=== PATIENT | male | born 1940 | race Caucasian/White ===

== ENCOUNTER 2017-10-19 16:59 | Observation (INO) | payer MEDICARE ==
[~2017-10-19] VITALS: Ht 177.8 cm; Wt 90.0 kg
[2017-10-19] VITALS (7 sets, daily range): BP systolic 118–176; BP diastolic 57–76; PULSE 56–68; RESP 15–18; TEMP 97.7–98.3; O2SAT 96–99
[~2017-10-19 16:59] MED LIST: CIPR-9 PO; LISI10TA PO; METR-1 PO; OMEP20TA93 PO; PRAV20TA2 PO; SUPETAB20 PO
[2017-10-19] MEDS ORDERED: ASPI1TAB57 PO (17:26)
[2017-10-19 17:34] LABS: AUTOMATED NEUTROPHIL # 6.1 TH/MM3 (1.8-7.7); BASOPHIL % 0.5 % (0.0-2.0); EOSINOPHIL # 0.2 TH/MM3 (0-0.4); EOSINOPHIL % 2.1 % (0.0-4.0); HEMATOCRIT 39.2 % (39.0-51.0); LYMPH % 11.5 % (9.0-44.0); LYMPHOCYTE # 0.9 TH/MM3 (1.0-4.8); MEAN CELL VOLUME 92.2 FL (80.0-100.0); MEAN CORPUSCULAR HEMOGLOBIN 32.8 PG (27.0-34.0); MEAN CORPUSCULAR HGB CONC 35.6 % (32.0-36.0); MEAN PLATELET VOLUME 7.5 FL (7.0-11.0); MONO % 9.1 % (0.0-8.0); MONOCYTE # 0.7 TH/MM3 (0-0.9); NEUT % 76.8 % (16.0-70.0); PLATELET COUNT 202 TH/MM3 (150-450); RED BLOOD COUNT 4.25 MIL/MM3 (4.50-5.90); RED CELL DISTRIBUTION WIDTH 12.7 % (11.6-17.2)
[2017-10-19] MEDS ORDERED: ASPIRIN 325 MG TAB PO ONE (17:45)
[2017-10-19 17:50] LABS: ALT (GPT) 42 U/L (12-78); INTERNATIONAL NORMALIZED RATIO 1.1 RATIO; PROTHROMBIN TIME - PATIENT 10.7 SEC (9.8-11.6)
[2017-10-19 17:52] LABS: ALBUMIN 3.8 GM/DL (3.4-5.0); AST (GOT) 40 U/L (15-37); BICARBONATE 24.5 MEQ/L (21.0-32.0); BLOOD UREA NITROGEN 22 MG/DL (7-18); CHLORIDE 102 MEQ/L (98-107); CREATININE 1.06 MG/DL (0.60-1.30); GLOMERULAR FILTRATION RATE 67 ML/MIN (>89); GLUCOSE,RANDOM 89 MG/DL (74-106); LIPASE 90 U/L (73-393); SODIUM (NA) 135 MEQ/L (136-145)
[2017-10-19 17:55] LABS: D-DIMER 0.22 MG/L FEU (0.00-0.50)
[2017-10-19 17:57] LABS: ALKALINE PHOSPHATASE 50 U/L (45-117); TOTAL BILIRUBIN ADULT 0.8 MG/DL (0.2-1.0); TOTAL PROTEIN 7.2 GM/DL (6.4-8.2); TROPONIN I LESS THAN 0.02 NG/ML (0.02-0.05)
--- NOTE | 2017-10-19 18:01 | RADRPT ---
EXAM DATE/TIME: 10/19/2017 17:37 [facility] COMPARISON: No previous studies available for comparison. INDICATIONS : Center chest pain. MEDICAL HISTORY : Gastroesophageal reflux disease. Hypertension. SURGICAL HISTORY : Cholecystectomy. Lumbar fusion. ENCOUNTER: Initial ACUITY: 1 day PAIN SCORE: 4/10 LOCATION: Bilateral chest FINDINGS: Mild right lung base atelectasis and/or infiltrate is seen. Heart and mediastinum are unremarkable fo r technique. CONCLUSION: Mild right lung base atelectasis and/or infiltrate is seen. Sonya Camejo MD on October 19, 2017 at 17:58 Board Certified Radiologist. This report was verified electronically.
[2017-10-19] MEDS ORDERED: SODIUM CHLORIDE 0.9% FLUSH 10 ML FLUSH IV FLUSH PRN (18:30)
--- NOTE | 2017-10-19 19:00 | PD ---
HPI Chief Complaint: Chest Pain Time Seen by Provider: 17:08 Travel History International Travel<30 days: No Contact w/Intl Traveler<30days: No Traveled to known affect area: No History of Present Illness HPI 77-year-old male that presents to the ED for evaluation of chest pain. Patient reports that he's had this left-sided chest pain on and off for the past couple of days. Per patient comes and goes. tells me that the pain got more severe today which is what prompted her to make him come to the ED. Patient states he has no history of heart disease in per patient has stress test done in [place] some time last summer and he was told he was okay. He states the chest pain comes and goes. Nothing really seems to make it better or worse. Per patient he is also "belching". He has a history of heartburn. Per patient he never had this chest pain before. He does have shortness of breath with the chest pain. He does come from [place] and recently flew on July but denies any other recent travel. Takes no blood thinners other than aspirin. Chest pain at this time is 6 out of 10. Denies any fevers chills or sweats. Per his to having some congestion but otherwise no cough. Per patient he attributes this to allergies. Has no allergies to medication. No other medical issues. Does have a history of high cholesterol and high blood pressure PFSH Past Medical History Hx Anticoagulant Therapy: Yes (81MG ASA) Arthritis: Yes Autoimmune Disease: No Anxiety: Yes Depression: No Cancer: Yes Cardiovascular Problems: Yes (+ STRESS TEST) High Cholesterol: Yes Chemotherapy: No Congestive Heart Failure: No Diabetes: No Diminished Hearing: No Endocrine: No Gastrointestinal Disorders: Yes GERD: Yes Glaucoma: No Genitourinary: No Hepatitis: No Hiatal Hernia: No Hypertension: Yes Immune Disorder: No Musculoskeletal: Yes Neurologic: No Psychiatric: Yes Reproductive: No Respiratory: No Integumentary: No Radiation Therapy: No Thyroid Disease: No Past Surgical History Abdominal Surgery: Yes (GALL BLADDER) AICD: No Arteriovenous Shunt: No Cholecystectomy: Yes Insulin Pump: No Joint Replacement: No Neurologic Surgery: Yes (BACK SURGERY X'S 5) Pacemaker: No Thoracic Surgery: No Other Surgery: Yes (BACK, GALLBLADDER, RIGHT KNEE) Social History Alcohol Use: Yes (1 rum/coke daily) Tobacco Use: No Substance Use: No Allergies-Medications (Allergen,Severity, Reaction): Coded Allergies: No Known Allergies (Verified , 09/26/16) Reported Meds & Prescriptions Reported Meds & Active Scripts Active Reported Aspirin 81 (Aspirin) 81 Mg Tabdr 81 Mg PO DAILY Omeprazole 20 Mg Tab 20 Mg PO BID Lisinopril-Hctz 10-12.5 Mg Tab 1 Tab PO DAILY Pravastatin 20 Mg Tab 20 Mg PO HS Review of Systems Except as stated in HPI: all other systems reviewed are Neg Physical Exam Narrative GENERAL: SKIN: Warm and dry. HEAD: Atraumatic. Normocephalic. EYES: Pupils equal and round. No scleral icterus. No injection or drainage. ENT: No nasal bleeding or discharge. Mucous membranes pink and moist. Tongue is midline. No uvula deviation. NECK: Trachea midline. No JVD. CARDIOVASCULAR: Regular rate and rhythm. No murmurs, S3, S4. RESPIRATORY: No accessory muscle use. Clear to auscultation. Breath sounds equal bilaterally. GASTROINTESTINAL: Abdomen soft, non-tender, nondistended. Hepatic and splenic margins not palpable. MUSCULOSKELETAL: Extremities without clubbing, cyanosis, or edema. No obvious deformities. Full range of motion of the upper and lower extremities bilaterally. 2+ pulses bilaterally. NEUROLOGICAL: Awake and alert. No obvious cranial nerve deficits. Motor grossly within normal limits. Five out of 5 muscle strength in the arms and legs. Normal speech. PSYCHIATRIC: Appropriate mood and affect; insight and judgment normal. Data Data Last Documented VS Vital Signs Date Time Temp Pulse Resp B/P (MAP) Pulse Ox O2 Delivery O2 Flow Rate FiO2 10/19/17 18:17 60 18 135/60 (85) 99 2.00 10/19/17 18:04 Nasal Cannula 10/19/17 17:02 97.7 Orders Orders Electrocardiogram (10/19/17 17:18) Complete Blood Count With Diff (10/19/17 17:18) Comprehensive Metabolic Panel (10/19/17 17:18) Ckmb (Isoenzyme) Profile (10/19/17 17:18) Troponin I (10/19/17 17:18) Prothrombin Time / Inr (Pt) (10/19/17 17:18) Act Partial Throm Time (Ptt) (10/19/17 17:18) Lipase (10/19/17 17:18) D-Dimer (10/19/17 17:18) Chest, Single Ap (10/19/17 17:18) Iv Access Insert/Monitor (10/19/17 17:18) Ecg Monitoring (10/19/17 17:18) Oximetry (10/19/17 17:18) Aspirin (Aspirin) (10/19/17 17:45) CKMB (10/19/17 17:22) CKMB% (10/19/17 17:22) Admit Order (Ed Use Only) (10/19/17 18:21) Activity Bed Rest With Brp (10/19/17 18:21) Vital Signs (Adult) Q4H (10/19/17 18:21) Cardiac Rhythm .As Directed (10/19/17 18:21) Notify Dr: Other .PRN (10/19/17 18:21) Notify DrAmanda Parameters (10/19/17 18:21) Resp Oxygen Nasal Cannula (10/19/17 ) Ckmb (Isoenzyme) Profile (10/19/17 20:22) Ckmb (Isoenzyme) Profile (10/19/17 23:22) Troponin I (10/19/17 20:22) Troponin I (10/19/17 23:22) Electrocardiogram (10/19/17 20:22) Electrocardiogram (10/19/17 23:22) ^ Obtain (10/19/17 18:21) Sodium Chloride 0.9% Flush (Ns Flush) (10/19/17 18:30) Sodium Chloride 0.9% Flush (Ns Flush) (10/19/17 21:00) Failure Analysis Engineer / Telemetry YING.Q8H (10/19/17 18:21) Labs Laboratory Tests Test 10/19/17 17:22 White Blood Count 8.0 TH/MM3 Red Blood Count 4.25 MIL/MM3 Hemoglobin 14.0 GM/DL Hematocrit 39.2 % Mean Corpuscular Volume 92.2 FL Mean Corpuscular Hemoglobin 32.8 PG Mean Corpuscular Hemoglobin Concent 35.6 % Red Cell Distribution Width 12.7 % Platelet Count 202 TH/MM3 Mean Platelet Volume 7.5 FL Neutrophils (%) (Auto) 76.8 % Lymphocytes (%) (Auto) 11.5 % Monocytes (%) (Auto) 9.1 % Eosinophils (%) (Auto) 2.1 % Basophils (%) (Auto) 0.5 % Neutrophils # (Auto) 6.1 TH/MM3 Lymphocytes # (Auto) 0.9 TH/MM3 Monocytes # (Auto) 0.7 TH/MM3 Eosinophils # (Auto) 0.2 TH/MM3 Basophils # (Auto) 0.0 TH/MM3 CBC Comment DIFF FINAL Differential Comment Prothrombin Time 10.7 SEC Prothromb Time International Ratio 1.1 RATIO Activated Partial Thromboplast Time 28.7 SEC D-Dimer Quantitative (PE/DVT) 0.22 MG/L FEU Blood Urea Nitrogen 22 MG/DL Creatinine 1.06 MG/DL Random Glucose 89 MG/DL Total Protein 7.2 GM/DL Albumin 3.8 GM/DL Calcium Level 8.0 MG/DL Alkaline Phosphatase 50 U/L Aspartate Amino Transf (AST/SGOT) 40 U/L Alanine Aminotransferase (ALT/SGPT) 42 U/L Total Bilirubin 0.8 MG/DL Sodium Level 135 MEQ/L Potassium Level 4.2 MEQ/L Chloride Level 102 MEQ/L Carbon Dioxide Level 24.5 MEQ/L Anion Gap 9 MEQ/L Estimat Glomerular Filtration Rate 67 ML/MIN Total Creatine Kinase 201 U/L Creatine Kinase MB 6.2 NG/ML Troponin I LESS THAN 0.02 NG/ML Lipase 90 U/L MDM Medical Decision Making Medical Screen Exam Complete: Yes Emergency Medical Condition: Yes Medical Record Reviewed: Yes Interpretation(s) CBC & BMP Diagram 10/19/17 17:22 Total Protein 7.2, Albumin 3.8, Calcium Level 8.0 L, Alkaline Phosphatase 50, Aspartate Amino Transf (AST/SGOT) 40 H, Alanine Aminotransferase (ALT/SGPT) 42, Total Bilirubin 0.8 troponin and CKMB negative EKG shows sinus rhythm with no sign of acute ischemia or arrhythmia. Read by me and attending. Last Impressions Chest X-Ray 10/19/17 2008 Signed Impressions: Service Date/Time: Thursday, October 19, 2017 17:37 - CONCLUSION: Mild right lung base atelectasis and/or infiltrate is seen. Sonya Camejo MD Differential Diagnosis Chest pain versus ACS versus GERD versus a typical chest pain versus PE versus normal exam Narrative Course 77-year-old male that presents to the ED for evaluation of chest pain. Patient was properly examined and was found to have signs and symptoms of unclear etiology at this time. Patient does have risk factors for ACS and this is concerning secondary to his age and comorbidities. Labs were ordered. Chest x- ray and labs were essentially unremarkable. No sign of ST elevation or signs of ischemia. Case was discussed in my attending Dr. Be who spoke with the patient and agrees the patient needs to be admitted for chest pain center. Patient will be admitted to the chest pain center. He agrees to this. Diagnosis Primary Impression: Chest pain in adult Admitting Information Admitting Physician Requests: Stas Roth Oct 19, 2017 19:00
[2017-10-19] MEDS: SODIUM CHLORIDE 0.9% FLUSH 10 ML FLUSH IV FLUSH SCH (20:24)
[2017-10-19 20:53] LABS: TROPONIN I LESS THAN 0.02 NG/ML (0.02-0.05)
--- NOTE | 2017-10-19 21:55 | EKG ---
Date Performed: 10/19/2017 Time Performed: 17:12:37 PTAGE: 77 years EKG: Sinus rhythm WITH FIRST DEGREE AV BLOCK WITH OCCASIONAL VENTRICULAR PREMATURE COMPLEXES MARKED LEFT AXIS DEVIATIO N SEPTAL MYOCARDIAL INFARCTION ABNORMAL ECG Compared to prior electrocardiogram, Premature ventricula r contractions are now present PREVIOUS TRACING : 09/26/2016 15.25 DOCTOR: Michael Hoover Interpretating Date/Time 10/19/2017 21:54:49
--- NOTE | 2017-10-19 22:04 | EKG ---
Date Performed: 10/19/2017 Time Performed: 20:16:37 PTAGE: 77 years EKG: SINUS BRADYCARDIA WITH FIRST DEGREE AV BLOCK MARKED LEFT AXIS DEVIATION ABNORMAL ECG Compar ed to prior electrocardiogram, Premature ventricular contractions no longer present. PREVIOUS TRACING : 10/19/2017 17.12 DOCTOR: Michael Hoover Interpretating Date/Time 10/19/2017 22:03:01
[2017-10-20 00:01] VITALS: PULSE 53
[2017-10-20 00:04] LABS: TROPONIN I LESS THAN 0.02 NG/ML (0.02-0.05)
[2017-10-20 03:33] VITALS: BP 116/59; PULSE 64; RESP 18; TEMP 97.9; O2SAT 96
[2017-10-20 04:05] VITALS: PULSE 58
[2017-10-20 07:46] VITALS: BP 132/56; PULSE 62; RESP 18; TEMP 98.1; O2SAT 93
[2017-10-20 07:59] VITALS: O2SAT 94
--- NOTE | 2017-10-20 08:24 | HHI.HP ---
[facility] Primary Care Physician Ernestine Byrne MD Chief Complaint Chest Pain History of Present Illness This is a 77 year old male that presents to ED with complaint of chest pain and SOB that has been intermittent for two weeks. Found nothing to bring on the discomfort. Discomfort occurs. States it will last for hours at a time. Nothing worsens or improves it. He has been short of breath with it. No nausea or diaphoresis. Has history of CAD. Had a cardiac catheterization at this facility in [address] Jain revealing 25% ostial LAD stenosis and 60% mid LAD stenosis. Circumflex had 60% ostial stenosis. Medical management was recommended. States he saw his supervisor tank storage in [place] in March or April with a normal stress test. Followed up with his supervisor tank storage locally a month ago which is Dr. Huntley and states that everything was okay. Did not have stress testing with that visit. Currently denies discomforts. Denies recent illness. Denies fevers or chills. Patient also is complaining of a headache but also states he's had it for years. States that she is related to stress or issues with his neck. Review of Systems General: Patient denies fevers, chills recent, and recent travel HEENT: Has chronic headache which she states she's had for years. Patient denies sore throat or difficulty swallowing. Cardiovascular: Has the chest discomfort as mentioned above. Denies sensation of heart beating rapidly or irregularly. No syncope. Respiratory: Has had some shortness of breath. Denies inspirational chest discomfort. Denies coughing wheezing or hemoptysis. GI: Patient denies nausea, vomiting, diarrhea, abdominal pain, bloody stools. Musculoskeletal: Patient denies joint pain or edema. Denies calf pain or edema. Neurovascular: Chronic headache. Patient denies numbness, tingling, weakness in extremities. Endocrine: Denies polyuria and polydipsia. Hematologic: Denies easy bruising. Skin: Denies rash or itching. Past Family Social History Allergies: Coded Allergies: No Known Allergies (Verified , 09/26/16) Past Medical History CAD. Hypertension and hyperlipidemia. Denies diabetes. Past Surgical History Cardiac catheterization without intervention in 2013. He has had 5 back surgeries. Cholecystectomy. Reported Medications Reported Meds & Active Scripts Active Reported Aspirin 81 (Aspirin) 81 Mg Tabdr 81 Mg PO DAILY Omeprazole 20 Mg Tab 20 Mg PO BID Lisinopril-Hctz 10-12.5 Mg Tab 1 Tab PO DAILY Pravastatin 20 Mg Tab 20 Mg PO HS Active Ordered Medications Current Medications Medications (Trade) Dose Ordered Sig/Genevieve Route Start Time Stop Time Status Last Admin (NS Flush) 2 ml UNSCH PRN IV FLUSH 10/19/17 18:30 (NS Flush) 2 ml BID IV FLUSH 10/19/17 21:00 10/19/17 20:24 (Pravachol) 20 mg HS PO 10/20/17 21:00 (Protonix) 20 mg BID PO 10/20/17 09:00 (Aspirin) 325 mg DAILY PO 10/20/17 09:00 (Prinivil) 10 mg DAILY PO 10/20/17 09:00 (Hydrodiuril) 12.5 mg DAILY PO 10/20/17 09:00 (Pill Splitter) 1 ea UNSCH PRN OTHER 10/20/17 09:00 Family History There is family history of CAD. Social History He is a nonsmoker. Has a daily alcoholic beverages. Denies illicit drugs. Physical Exam Vital Signs Vital Signs Date Time Temp Pulse Resp B/P (MAP) Pulse Ox O2 Delivery O2 Flow Rate FiO2 10/20/17 07:59 94 10/20/17 07:46 98.1 62 18 132/56 (81) 93 10/20/17 04:05 58 10/20/17 03:33 97.9 64 18 116/59 (78) 96 10/20/17 00:01 53 10/19/17 23:16 97.9 57 16 121/57 (78) 96 10/19/17 20:20 98.3 60 18 118/69 (85) 98 10/19/17 20:20 58 10/19/17 18:56 98.2 56 15 126/58 (80) 99 Nasal Cannula 2.00 10/19/17 18:17 60 18 135/60 (85) 99 2.00 10/19/17 18:04 18 97 Nasal Cannula 2.00 10/19/17 17:23 62 18 97 Room Air 10/19/17 17:15 65 18 176/76 (109) 97 10/19/17 17:02 97.7 68 16 164/75 (104) 98 Room Air Physical Exam GENERAL: This is a well-nourished, well-developed patient, in no apparent distress. Patient speaks in clear complete sentences. Patient is pleasant. HEENT: Head is atraumatic and normocephalic. Neck is supple without lymphadenopathy and trachea is midline. No JVD or carotid bruits. CARDIOVASCULAR: Regular rate and rhythm without murmurs, gallops, or rubs. RESPIRATORY: Clear to auscultation. Breath sounds equal bilaterally. No wheezes , rales, or rhonchi. Chest wall is nontender. No use of accessory muscles. GASTROINTESTINAL: Abdomen is nontender, nondistended. Abdomen soft. No obvious pulsatile mass or bruit. No CVA tenderness. Strong femoral pulses bilaterally. Normal bowel sounds in all quadrants. MUSCULOSKELETAL: Patient is moving upper and lower extremities freely. No calf tenderness or edema, no Homans sign. Strong pulses in upper and lower extremities. NEUROLOGICAL: Patient is alert and oriented. Cranial nerves 2-12 are grossly intact. No focal deficits and speech is clear. SKIN: No rash and turgor is normal. Laboratory Laboratory Tests Test 10/19/17 17:22 10/19/17 20:20 10/19/17 23:30 White Blood Count 8.0 Red Blood Count 4.25 Hemoglobin 14.0 Hematocrit 39.2 Mean Corpuscular Volume 92.2 Mean Corpuscular Hemoglobin 32.8 Mean Corpuscular Hemoglobin Concent 35.6 Red Cell Distribution Width 12.7 Platelet Count 202 Mean Platelet Volume 7.5 Neutrophils (%) (Auto) 76.8 Lymphocytes (%) (Auto) 11.5 Monocytes (%) (Auto) 9.1 Eosinophils (%) (Auto) 2.1 Basophils (%) (Auto) 0.5 Neutrophils # (Auto) 6.1 Lymphocytes # (Auto) 0.9 Monocytes # (Auto) 0.7 Eosinophils # (Auto) 0.2 Basophils # (Auto) 0.0 CBC Comment DIFF FINAL Differential Comment Prothrombin Time 10.7 Prothromb Time International Ratio 1.1 Activated Partial Thromboplast Time 28.7 D-Dimer Quantitative (PE/DVT) 0.22 Blood Urea Nitrogen 22 Creatinine 1.06 Random Glucose 89 Total Protein 7.2 Albumin 3.8 Calcium Level 8.0 Alkaline Phosphatase 50 Aspartate Amino Transf (AST/SGOT) 40 Alanine Aminotransferase (ALT/SGPT) 42 Total Bilirubin 0.8 Sodium Level 135 Potassium Level 4.2 Chloride Level 102 Carbon Dioxide Level 24.5 Anion Gap 9 Estimat Glomerular Filtration Rate 67 Total Creatine Kinase 201 147 126 Creatine Kinase MB 6.2 5.0 4.4 Troponin I LESS THAN 0.02 LESS THAN 0.02 LESS THAN 0.02 Lipase 90 Result Diagram: 10/19/17 1722 10/19/17 1722 Imaging Last 48 hours Impressions Chest X-Ray 10/19/17 1718 Signed Impressions: Service Date/Time: Thursday, October 19, 2017 17:37 - CONCLUSION: Mild right lung base atelectasis and/or infiltrate is seen. Sonya Camejo MD Course EKGs have been sinus rhythm to sinus bradycardia without significant ST segment depressions or elevations. There are nonspecific inferior T-wave changes. Caprini VTE Risk Assessment Caprini VTE Risk Assessment: Mod/High Risk (score >= 2) Caprini Risk Assessment Model Point Value = 1 Point Value = 2 Point Value = 3 Point Value = 5 Age 41-60 Minor surgery BMI > 25 kg/m2 Swollen legs Varicose veins or History of unexplained or recurrent spontaneous Oral contraceptives or hormone replacement Sepsis (< 1 month) Serious lung disease, including pneumonia (< 1 month) Abnormal pulmonary function Acute myocardial infarction Congestive heart failure (< 1 month) History of inflammatory bowel disease Medical patient at bed rest Age 61-74 Arthroscopic surgery Major open surgery (> 45 min) Laparoscopic surgery (> 45 min) Malignancy Confined to bed (> 72 hours) Immobilizing plaster cast Central venous access Age >= 75 History of VTE Family history of VTE Factor V Leiden Prothrombin [id number] Lupus anticoagulant Anticardiolipin antibodies Elevated serum homocysteine Heparin-induced thrombocytopenia Other congenital or acquired thrombophilia Stroke (< 1 month) Elective arthroplasty Hip, pelvis, or leg fracture Acute spinal cord injury (< 1 month) Prophylaxis Regimen Total Risk Factor Score Risk Level Prophylaxis Regimen 0-1 Low Early ambulation 2 Moderate Order ONE of the following: *Sequential Compression Device (SCD) *Heparin 5000 units SQ BID 3-4 Higher Order ONE of the following medications: *Heparin 5000 units SQ TID *Enoxaparin/Lovenox 40 mg SQ daily (WT < 150 kg, CrCl > 30 mL/min) *Enoxaparin/Lovenox 30 mg SQ daily (WT < 150 kg, CrCl > 10-29 mL/min) *Enoxaparin/Lovenox 30 mg SQ BID (WT < 150 kg, CrCl > 30 mL/min) AND/OR *Sequential Compression Device (SCD) 5 or more Highest Order ONE of the following medications: *Heparin 5000 units SQ TID (Preferred with Epidurals) *Enoxaparin/Lovenox 40 mg SQ daily (WT < 150 kg, CrCl > 30 mL/min) *Enoxaparin/Lovenox 30 mg SQ daily (WT < 150 kg, CrCl > 10-29 mL/min) *Enoxaparin/Lovenox 30 mg SQ BID (WT < 150 kg, CrCl > 30 mL/min) AND *Sequential Compression Device (SCD) Assessment and Plan Assessment and Plan * Chest pain: Patient has had serial cardiac enzymes and EKGs for ruling out purposes. He has been seen by Dr. Ronni Hinds of cardiology in the chest pain center and will undergo a Lexiscan. He'll be discharged home if the stress test was nonischemic with instructions to follow-up with PCP and cardiology. * CAD: Patient has history of CAD. She'll be reassessed stress testing. He should follow-up with his supervisor tank storage. Resume medications. * Hyperlipidemia: Continue current medication. * Hypertension: Continue current medication. Patient is stable at this time. He is agreeable to this plan. Tony Arteaga Oct 20, 2017 08:24
[2017-10-20] MEDS: SODIUM CHLORIDE 0.9% FLUSH 10 ML FLUSH IV FLUSH SCH (08:36)
[2017-10-20] MEDS ORDERED: HYDROCHLOROTHIAZIDE 25 MG TAB PO SCH (09:00)
[2017-10-20] MEDS ORDERED: PILL SPLITTER OTHER PRN (09:00)
[2017-10-20] MEDS ORDERED: LISINOPRIL 10 MG TAB PO SCH (09:00)
[2017-10-20] MEDS ORDERED: ASPIRIN 325 MG TAB PO SCH (09:00)
[2017-10-20] MEDS ORDERED: NON-FORMULARY DRUG (Lisinopril-Hctz 1 TAB) PO SCH (09:00)
[2017-10-20] MEDS ORDERED: PANTOPRAZOLE SOD 20 MG DELAYED RELEASE TAB PO SCH (09:00)
[2017-10-20] MEDS ORDERED: REGADENOSON INJ 0.4 MG/5 ML SYR ONE (10:13)
--- NOTE | 2017-10-20 11:27 | RADRPT ---
EXAM DATE/TIME: 10/20/2017 10:08 [facility] COMPARISON: No previous studies available for comparison. INDICATIONS : Substernal chest pain with dyspnea. Angina. Coronary artery disease. DOSE: 25.4 mCi Tc99m Myoview at stress. 8.5 mCi Tc99m Myoview at rest. 0.4 mg Lexiscan STRESS SYMPTOMS: Dyspnea, facial flush and headache. EJECTION FRACTION: 66% MEDICAL HISTORY : Hypertension. SURGICAL HISTORY : Coronary artery stent. Cholecystectomy. Back. ENCOUNTER: Initial ACUITY: 2 weeks PAIN SCALE: 5/10 LOCATION: Substernal chest TECHNIQUE: The patient underwent pharmacologic stress with infusion of prescribed dose. Continuous ECG tracing was monitored during stress. Gated SPECT imaging was performed after stress and conventional SPECT i maging was performed at rest. The examination was performed on a SPECT/CT scanner, both attenuation and non-corrected datasets were reviewed. FINDINGS: DISTRIBUTION: The maximum perfused segment at stress is in the anterior wall. PERFUSION STUDY: The pattern of perfusion at stress is within normal limits. GATED STUDY: There is intact wall motion and thickening without hypokinetic or dyskinetic segments. CONCLUSION: No areas of ischemia are seen. RISK CATEGORY: Low (<1% Annual Mortality Rate) Solomon Ragsdale MD on October 20, 2017 at 11:22 Board Certified Radiologist. This report was verified electronically.
[2017-10-20 11:46] VITALS: BP 112/62; PULSE 67; RESP 20; TEMP 97.9; O2SAT 98
--- NOTE | 2017-10-20 11:53 | HHI.DCPOC ---
Discharge Care Plan Diagnosis: (1) Chest pain (2) CAD (coronary artery disease) (3) Hypertension (4) Hyperlipidemia (5) GERD (gastroesophageal reflux disease) Goals to Promote Your Health * To prevent worsening of your condition and complications * To maintain your health at the optimal level Directions to Meet Your Goals Take your medications as prescribed Follow your dietary instruction Follow activity as directed Keep your appointments as scheduled Take your immunizations and boosters as scheduled If your symptoms worsen call your PCP, if no PCP go to Urgent Care Center or Emergency Room Smoking is Dangerous to Your Health. Avoid second hand smoke Call the 24-hour hour crisis hotline for domestic abuse at Tony Arteaga Oct 20, 2017 11:53
[2017-10-20] MEDS ORDERED: PRAVASTATIN SOD 20 MG TAB PO SCH (21:00)
--- NOTE | 2017-10-21 09:30 | TR ---
Date Performed: 10/20/2017 Time Performed: 10:25:26 DOCTOR: Carmelina Selby DRUG LIST: CLINICAL HISTORY: CHEST PAIN REASON FOR TEST: CHEST PAIN REASON FOR ENDING: OBSERVATION: CONCLUSION: Lexiscan stress test was performed under standard four minute protocol. Radionuclid e was injected one minute prior to ending the test. No electrocardiographic abormalities were present to suggest ischemia. Nuclear imaging and interpretation are pending. COMMENTS:
--- NOTE | 2017-10-22 09:57 | EKG ---
Date Performed: 10/19/2017 Time Performed: 23:20:51 PTAGE: 77 years EKG: SINUS BRADYCARDIA WITH FIRST DEGREE AV BLOCK MARKED LEFT AXIS DEVIATION INCOMPLETE RIGHT BU NDLE BRANCH BLOCK ABNORMAL ECG PREVIOUS TRACING : 10/19/2017 20.16 Since previous tracing, no significant change noted DOCTOR: Ronni Hinds Interpretating Date/Time 10/22/2017 09:56:05
== END 2017-10-20 13:06 | disposition home or self-care (01) ==
LOC: NEPC 16:59 → NEDA 18:23 → NEPGCP 19:32
PROVIDERS: ADMIT Internal Medicine Interventional Cardiology; ATTEND Internal Medicine Interventional Cardiology
DX: R07.9 Chest pain, unspecified (principal); I25.10 Atherosclerotic heart disease of native coronary artery without angina pectoris; I10 Essential (primary) hypertension; E78.5 Hyperlipidemia, unspecified; K21.9 Gastro-esophageal reflux disease without esophagitis; Z79.899 Other long term (current) drug therapy; R51 Headache; J98.11 Atelectasis; F41.9 Anxiety disorder, unspecified; R12 Heartburn; Z95.5 Presence of coronary angioplasty implant and graft; I44.0 Atrioventricular block, first degree; R94.31 Abnormal electrocardiogram [ECG] [EKG]; I45.10 Unspecified right bundle-branch block
CPT/HCPCS: 71010; 78452; 80053; 82550; 82552; 83690; 84484; 85025; 85379; 85610; 85730; 93005; 93017; 99285; A9502; G0378; J2785